=== PATIENT | female | born 1955 | race Caucasian/White ===

== ENCOUNTER → 2019-08-31 | Outpatient (CLI) | payer MEDICARE, SELFPAY ==
[2019-08-21 13:42] VITALS: BMI 29.0
--- NOTE | 2019-08-31 11:10 | RAD_ITS ---
HISTORY: fracture COMPARISON: None FINDINGS: # of images incl. paperwork: 3 XR Ankle Min 3 Views : Of fracture is present through the lateral malleolus. The fracture appears to begin barely below the level of the talar dome, and extends for 2.3 cm cranial to the tibial plafond and the distal fracture fragment is laterally subluxed by 1 cortex width The ankle mortise is intact. Soft tissue swelling is present about the ankle, but greater laterally. RAD/Ankle min 3 Views IMPRESSION: Oblique fracture through the lateral malleolus that extends for 2.3 cm above the tibial plafond of the right ankle. at [id number] Reported and signed by: Federico Chavez MD Electronically Signed: Federico Chavez MD at 6:04 EST Tel , Service support ,
== END | disposition home or self-care (01) ==
LOC: HPRAD 11:10
PROVIDERS: PCP Nurse Practitioner; Referring Provider Physician Assistant; Visit Provider Physician Assistant
DX: S82.892A Other fracture of left lower leg, initial encounter for closed fracture (principal)
CPT/HCPCS: 73610

== ENCOUNTER → 2019-09-08 | Outpatient (CLI) | payer MEDICARE, SELFPAY ==
[2019-08-21 13:42] VITALS: BMI 29.0
--- NOTE | 2019-09-08 09:33 | RAD_ITS ---
STUDY: X-RAY - LEFT ANKLE REASON FOR EXAM: Female, 64 years old. FOLLOW UP RT ANKLE FX TECHNIQUE: 3 view(s) of the ankle. COMPARISON: 08/31/2019 FINDINGS: Healing slightly laterally displaced oblique fracture of the distal right fibular proximal tibial plafond with early callus formation. Normal medial and lateral malleoli. Normal tibiotalar articulation and ankle mortise. Normal visualized talus and calcaneus. The visualized subtalar, talonavicular, calcaneocuboid and tarsal articulations are normal. The soft tissue structures are unremarkable. RAD/Ankle min 3 Views IMPRESSION: Healing slightly laterally displaced oblique fracture of the distal right fibula proximal to the tibial plafond with early callus formation. Electronically Signed: Benjamin Meneses MD at 14:33 EST Tel , Service support ,
== END | disposition home or self-care (01) ==
LOC: HPRAD 09:33
PROVIDERS: PCP Nurse Practitioner; Referring Provider Physician Assistant; Visit Provider Physician Assistant
DX: S82.892A Other fracture of left lower leg, initial encounter for closed fracture (principal)
CPT/HCPCS: 73610

== ENCOUNTER → 2019-09-26 | Outpatient (CLI) | payer MEDICARE, SELFPAY ==
[2019-09-26 09:37] VITALS: BMI 29.0
--- NOTE | 2019-09-26 09:44 | RAD_ITS ---
STUDY: X-RAY - RIGHT ANKLE REASON FOR EXAM: Fracture follow-up. TECHNIQUE: 3 view(s) of the ankle. COMPARISON: Radiographs 09/08/2019 and 08/31/2019. FINDINGS: There is no significant change of the healing minimally displaced fracture of the distal fibula. Normal medial and lateral malleoli. Normal tibiotalar articulation and ankle mortise. There is a plantar calcaneal enthesophyte. Otherwise, unremarkable visualized talus and calcaneus. The visualized subtalar, talonavicular, calcaneocuboid and tarsal articulations are normal. There is mild lateral soft tissue swelling. RAD/Ankle min 3 Views IMPRESSION: No significant change of healing distal fibular fracture. Electronically Signed: Caleb Edwards MD at 11:11 EDT Tel , Service support ,
== END | disposition home or self-care (01) ==
LOC: HPRAD 09:44
PROVIDERS: PCP Nurse Practitioner; Referring Provider Orthopaedic Surgery; Visit Provider Orthopaedic Surgery
DX: S82.831A Other fracture of upper and lower end of right fibula, initial encounter for closed fracture (principal); S82.891A Other fracture of right lower leg, initial encounter for closed fracture
CPT/HCPCS: 73610

== ENCOUNTER 2021-04-22 11:00 | Outpatient (RCR) | payer MEDICARE, SELFPAY ==
--- NOTE | 2021-04-02 16:58 | HP.OTEVAL ---
Patient's Visit Information JHON PURDY is a 65 year old F, referred to Occupational Therapy by Yesenia Krueger, MAGY-C, with a diagnosis of lymphedema. Date of Evaluation: 04/02/21 Occupational Therapist: Candi Bruno, TIFFANIER/Regan, CHT - Subjective This 65 year old female was seen for OT eval with dx of lymphedema bilateral LE. pt has worked standing on concret for years and last four years or so she has used compression socks thigh high 20-30 mmHg. pt states she continues to struggle with swelling and pain in her legs by the end of the day. pt states she sleeps in a regular bed and is getting a wedge for her LE to sleep with them elevated. Pt would like to know what else she can do to mtg her swelling. - Pain bilateral LE 4 Pain Intensity Range: 5 - Lymphedema (Circumferential Measure) Mid-foot: right 22cm left 21cm Ankle: right 24cm left 26cm Lower calf: right 34cm left 33cm Largest calf: right 39cm left 39cm Below knee: right 38cm left 37cm Above knee: right 46cm left 42cm Mid-thigh: right 50cm left 52 cm Lower Exremity Comments: pt demo with LE edema bilaterally. left ankle more than right. pain with palpation of left ankle - Lower Limb Functional Index Lower Extremity Functional Score: 28 - Goals Demonstrate a 20% reduction in edema by d/c: Yes Demonstrate adequate knowledge of self-bangaging by 1st week: Yes Demonstrate adequate knowledge of self-massage by 2nd week: Yes Demonstrate adequate knowledge skin care/prec by 2nd week: Yes Demonstrate adequate knowledge therapeutic exercises by d/c: Yes Select approp compression garment w/donning/care/wear by d/c: Yes Voice need to replace compression garment every 4-6mo by dc: Yes - Rehabilitation General Assessment: pt demo with edema and as conservative compression socks are not mtg. well pt would benefit from flexitouch to assist her with pts mtg of lymphedema. Pt would benefit from OT services for 2-3 visits to ensure pt is able to mtg her lymphedema and understands need of compression devices and skin care. pt agree to POC. Rehabilitation Potential: Good - Anticipated Interventions Education re Diagnosis, Manual Lymph Drainage, Education re Life-long lymphedema Management, Education re Self-Bandaging Techniques, Education re Skin Care and Precautions, Education re Self Massage Techniques, Education re Correct Donning Tech,Care&Wearing Sched Comp Garments, Home Program - Visit Plan TEXT: Thank you for the opportunity to evaluate your patient. For Medicare and Medicare HMO plans, please review the plan of care and approve it. It will need to be FAXED BACK to us at [phone] for Medicare purposes. Please let me know if there are questions or concerns regarding this plan of care. Physician Signature: Date:
--- NOTE | 2021-04-28 09:06 | OTREVAL_ITS ---
Yesenia Krueger, TECHNICAL STENOGRAPHER-C, It has been my pleasure to treat JHON PURDY over the last 3 visits for lymphedema. Please see the progress note below for an update on the occupational therapy plan of care! Subjective: pt arrives to session- states she is doing ok- continues to have ankle swelling with using her compression thigh high socks 20-30mmHg. 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 pt reports she is performing her HEP at least 2 x a day. Objective/Function: pt demo with a reduction of bilateral circumference of ankles right from 10.5 to 9.5 and left from 11 to 10 following use of vaso pneumatic devices for home mtg. pt would benefit from from home lympha press or vaso pneumatic device Plan Visits in this POC: 2-3 visits Plan: initate home unit for pt to mtg LE edema Goals - Goals Demonstrate a 20% reduction in edema by d/c: Yes Demonstrate adequate knowledge of self-bangaging by 1st week: Yes Demonstrate adequate knowledge of self-massage by 2nd week: Yes Demonstrate adequate knowledge skin care/prec by 2nd week: Yes Demonstrate adequate knowledge therapeutic exercises by d/c: Yes Select approp compression garment w/donning/care/wear by d/c: Yes Voice need to replace compression garment every 4-6mo by dc: Yes Patient Goals: Learn how to Manage Lymphedema Anticipated Interventions Anticipated Interventions: Education re Diagnosis, Manual Lymph Drainage, Education re Life-long lymphedema Management, Education re Self-Bandaging Techniques, Education re Skin Care and Precautions, Education re Self Massage Techniques, Education re Correct Donning Tech,Care&Wearing Sched Comp Garments, Home Program Please do not hesitate to contact me at [phone] by phone or if you have questions or concerns regarding this new plan of care! Sincerely, Candi Bruno, OTR/L, CHT
--- NOTE | 2021-05-27 13:51 | HP.OTREVAL ---
Yesenia Krueger, COMPLETION SUPERVISOR-C, It has been my pleasure to treat JHON PURDY over the last 3 visits for lymphedema. Please see the progress note below for an update on the occupational therapy plan of care! Subjective: pt arrives to session- states she is doing ok- continues to have ankle swelling with using her compression thigh high socks 20-30mmHg. 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 pt reports she is performing her HEP at least 2 x a day. Objective/Function: pt demo with a reduction of bilateral circumference of ankles. right from 10.5 to 9.5 and left from 11 to 10 following use of vaso pneumatic devices for home mtg. pt would benefit from from home lympha press or vaso pneumatic device to stimulate circulation. due to risk of fluid retention in pts abdomen ( truncal swelling or truncal congestion) therapist recommending flexitouch unit to better control lymph fluid circulation and lymphedema mtg. Plan Visits in this POC: 2-3 visits Plan: initate home unit for pt to mtg LE edema Goals - Goals Demonstrate a 20% reduction in edema by d/c: Yes Demonstrate adequate knowledge of self-bangaging by 1st week: Yes Demonstrate adequate knowledge of self-massage by 2nd week: Yes Demonstrate adequate knowledge skin care/prec by 2nd week: Yes Demonstrate adequate knowledge therapeutic exercises by d/c: Yes Select approp compression garment w/donning/care/wear by d/c: Yes Voice need to replace compression garment every 4-6mo by dc: Yes Patient Goals: Learn how to Manage Lymphedema Anticipated Interventions Anticipated Interventions: Education re Diagnosis, Manual Lymph Drainage, Education re Life-long lymphedema Management, Education re Self-Bandaging Techniques, Education re Skin Care and Precautions, Education re Self Massage Techniques, Education re Correct Donning Tech,Care&Wearing Sched Comp Garments, Home Program Please do not hesitate to contact me at [phone] by phone or if you have questions or concerns regarding this new plan of care! Sincerely, Candi Bruno, OTR/L, CHT
--- NOTE | 2021-07-22 09:32 | HP.OTDCSUM ---
It has been my pleasure to treat JHON PURDY under orders from REBEKAH Genao, for the diagnosis of lymphedema for a total of 3 visit(s). Please see the following information for a summary of their discharge status. % Improvement: 60 Objective/Function: pt demo with a reduction of bilateral circumference of ankles. right from 10.5 to 9.5 and left from 11 to 10 following use of vaso pneumatic devices for home mtg. pt would benefit from from home lympha press or vaso pneumatic device to stimulate circulation. due to risk of fluid retention in pts abdomen ( truncal swelling or truncal congestion) therapist recommending flexitouch unit to better control lymph fluid circulation and lymphedema mtg. Patient Goals: Learn how to Manage Lymphedema Demonstrate a 20% reduction in edema by d/c: Yes Demonstrate adequate knowledge of self-bangaging by 1st week: Yes Demonstrate adequate knowledge of self-massage by 2nd week: Yes Demonstrate adequate knowledge skin care/prec by 2nd week: Yes Demonstrate adequate knowledge therapeutic exercises by d/c: Yes Select approp compression garment w/donning/care/wear by d/c: Yes Voice need to replace compression garment every 4-6mo by dc: Yes Plan: initate home unit for pt to mtg LE edema If there are questions or concerns regarding this patient's occupational therapy, please fell free to call me at [phone]. Thank you for the referral of this patient. Sincerely, Candi Bruno, OTR/L, CHT
== END 2021-07-22 12:28 | disposition home or self-care (01) ==
LOC: OT 11:00
PROVIDERS: PCP Nurse Practitioner; Referring Provider Nurse Practitioner; Visit Provider Nurse Practitioner
DX: I89.0 Lymphedema, not elsewhere classified (principal)
CPT/HCPCS: 97166; 97530

== ENCOUNTER → 2023-03-29 | Outpatient (CLI) | payer MEDICARE, SELFPAY ==
[2023-03-29 21:18] LABS: Absolute Lymphocyte Count 1.83 X10^3/uL (0.83-4.51); Absolute Neutrophil Count 5.1 X10^3/uL (2.0-7.7); Basophil# 0.03 X10^3/uL; Basophil% 0.4 % (0-1); Eosinophil# 0.09 X10^3/uL; Eosinophils% 1.2 % (0-5); Hematocrit 41.1 % (37-47); Lymphocyte # 1.83 X10^3/ul (0.83-4.51); Mean Corp Hgb Conc 31.6 g/dL (32-36); Mean Corpuscular Hgb 29.9 pg (27.0-32.0); Mean Corpuscular Volume 94.5 fL (81-99); Monocyte# 0.55 X10^3/uL; Monocyte% 7.2 % (0-10); NRBC Flagged by Analyzer 0 % (0-5); Neutrophil # 5.11 X10^3/uL (2.7-7.7); Neutrophil % 67.1 % (47-70); Platelet Count 379 K/mm3 (150-450); RBC Distribution Width CV 13.1 % (11.6-14.6); RBC Distribution Width SD 45.4 fl (35.1-43.9); Red Blood Count 4.35 M/mm3 (4.2-5.4); White Blood Count 7.6 K/mm3 (4.4-11.0)
[2023-03-29 21:28] LABS: ALB/GLOB Ratio 1.2 RATIO (0.9-2.4); AST(SGOT) 20 U/L (15-37); Alanine Aminotransfer ALT/SGPT 28 U/L (13-56); Albumin, Serum 3.7 g/dL (3.2-5.0); Alkaline Phosphatase 65 U/L (45-117); Anion Gap 5 (5-15); BUN 14 mg/dL (7-18); BUN/Creat Ratio 18.3 RATIO (10-20); Calcium,Total 9.1 mg/dL (8.5-10.1); Chloride 107 mmol/L (98-107); Cholesterol 236 mg/dL (200); Creatinine, Serum 0.77 mg/dL (0.55-1.02); EST Glomerular Filtration Rate 79 mL/min (>60); Est Glom Filt Rate - Afr Amer 96 mL/min (>60); Globulin 3.1 g/dL (2.2-4.2); Glucose 121 mg/dL (74-106); High Density Lipoprotein 54 mg/dL; Potassium 3.8 mmol/L (3.5-5.1); Protein, Total 6.8 g/dL (6.4-8.2); Sodium Level 140 mmol/L (136-145); Triglycerides 138 mg/dL; Very Low Density Lipoprotein 28 mg/dL (5-40)
== END | disposition home or self-care (01) ==
PROVIDERS: PCP Nurse Practitioner; Visit Provider Nurse Practitioner
DX: E78.5 Hyperlipidemia, unspecified (principal); I89.0 Lymphedema, not elsewhere classified; M25.572 Pain in left ankle and joints of left foot
CPT/HCPCS: 80053; 80061; 85025

== ENCOUNTER → 2023-09-10 | Outpatient (CLI) | payer MEDICARE, SELFPAY ==
--- NOTE | 2023-09-10 10:16 | BD_ITS ---
STUDY: DUAL ENERGY X-RAY ABSORPTIOMETRY / DXA REASON FOR EXAM: Female, 68 years old. Foot problems TECHNIQUE: Bone Mineral Density (BMD) measurements of lumbar spine and bilateral hips were obtained. COMPARISON: None. FINDINGS: Lumbar Spine (L1-L4): g/cm2 (1.107) / T-score (0.3) / Z-score (2.4) Findings are suggestive of normal bone density with a low fracture risk. Left Femur Total: g/cm2 (0.794) / T-score (-1.2) / Z-score (0.2) Left Femoral Neck: g/cm2 (0.728) / T-score (-1.1) / Z-score (0.7) Right Femur Total: g/cm2 (0.787) / T-score (-1.3) / Z-score (0.2) Right Femoral Neck: g/cm2 (0.705) / T-score (-1.3) / Z-score (0.4) BD/Dexa Bone Density Study IMPRESSION: The patient is considered osteopenic as outlined below according to World [employer] Organization (WHO) criteria with a low fracture risk. Reference Information: The T-score is the number of standard deviations above or below the standard which is normal for young adults at their peak bone mineral density. The World Health Organization (WHO) interprets the T-scores as follows: Above -1 Normal bone density Between -1 and -2.5 Osteopenia Equal to / or below -2.5 Osteoporosis As a practical clinical guideline, osteopenia may be graded as follows: Mild -1 through -1.5 Moderate -1.6 through -2.0 Severe -2.1 through -2.4 The Z-score is the number of standard deviations above or below age-matched controls. A Z-score of less than -1.5 would be considered abnormal. References: 1. NIH Osteoporosis and Related Bone Diseases www osteo.org 2. International Society for Clinical Densitometry www iscd.org 3. National Osteoporosis Foundation www nof.org Electronically Signed: Socrates Maldonado MD at 14:44 EST ,
--- OUTSIDE RECORDS SUMMARY | 2023-09-10 10:36 | XMS RPT_ITS | CCD ---
Author Name Unknown Address [address] [place] [address] Organization [facility] Care Team Providers Care Parimutuel Ticket Cashier Name Role Phone CALEB PISANO Unavailable Unavailable IMCA Unavailable Unavailable CHARITO KRUEGER Unavailable Unavailable CALEB PISANO Unavailable Unavailable CHARITO KRUEGER Unavailable Unavailable CALEB PISANO Unavailable Unavailable [facility]CA Unavailable Unavailable CHARITO KRUEGER Unavailable Unavailable CALEB PISANO Unavailable Unavailable [facility]CA Unavailable Unavailable CHARITO KRUEGER Unavailable Unavailable Unavailable Primary Care Provider Unavailabl e Unavailable Primary Care Provider Unavailabl e Unavailable Primary Care Provider Unavailabl e PROVIDER, UNKNOWN Referring Unavailable Charito Krueger Primary Care Unavailable Emiliano Rose Attending Unavailable Charito Krueger Primary Care Provider Allergies Allergy Classification Reported Allergen(s) Allergy Type Date of Onset Reaction(s) Facility (1 source) Iodides Propensity to adverse reactions to drug 04-13-2022 [facility] Medications Current Medications Medication Drug Class(es) Dates Sig (Normalized) Sig (Original) Acetaminophen (1 source) Start: 04-13-2022 acetaminophen (TYLENOL) tablet 650 mg atorvastatin 10 mg oral tablet (2 sources) HMG-CoA Reductase Inhibitor Start: 04-14-2022 take 1 tablet by mouth once daily atorvastatin (LIPITOR) 10 MG tablet Take 1 tablet by mouth daily 30 tablet 0 04/14/2022 Active Completed/Discontinued Medications Medication Drug Class(es) Dates Sig (Normalized) Sig (Original) aspirin 81 mg chewable tablet (4 sources) Platelet Aggregation Inhibitor, Nonsteroidal Anti-inflammatory Drug Start: 04-14-2022 take 81 mg by mouth once daily 81 mg, Oral, DAILY, First dose on Wed04/14/22 at 0900, Until Discontinued Problems Active Problems Problem Classification Problem Date Documented Da te Episodic/Chronic Allergic reactions (2 sources) Radiographic dye allergy status; Translations: [Radiographic dye allergy status] Onset: 04-13-2022 Episodic Fracture of lower limb (1 source) Closed fracture of distal fibula Episodic Other aftercare (2 sources) termite control representative (current) use of aspirin; Translations: [termite control representative (current) use of aspirin] Onset: 04-13-2022 Episodic Other non-traumatic joint disorders (3 sources) Arthralgia of the ankle and/or foot; Translations: [Pain in left ankle and joints of left foot] 03-30-2023 Episodic Other non-traumatic joint disorders (3 sources) Effusion of joint of left ankle; Translations: [Effusion, left ankle] 03-30-2023 Episodic Residual codes; unclassified (2 sources) Family history of ischemic heart disease and other diseases of the circulatory system; Translations: [Family hx of ischem heart dis and oth dis of the [facility]] Onset: 04-13-2022 Episodic Unclassified (1 source) Unknown / UNK(Unknown) Onset: 04-14-2018 Past or Other Problems Problem Classification Problem Date Documented Date Episodic/Chronic Abdominal hernia (7 sources) Hiatal hernia; Translations: [Diaphragmatic hernia without obstruction or gangrene] Onset: 04-13-2022 Episodic Nonspecific chest pain (7 sources) Chest pain; Translations: [Chest pain, unspecified] Onset: 04-13-2022 Episodic Unclassified (1 source) Varicose veins of bilateral lower extremities with other complications Onset: 04-14-2018 Results Test Name Value Interpretation Reference Range Facil ity Vital Signs Date Time Vital Sign Value Performing Clinician Faci lity 04-14-2022 11:06-0400 Diastolic blood pressure 72 mm[Hg] Yrn Johnston MD Work Phone: [facility] 04-14-2022 11:06-0400 Heart rate 89 /min Ynr Johnston MD Work Phone: [facility] 04-14-2022 11:06-0400 SaO2% (BldA) [Mass fraction] 96 % Yrn Johnston MD Work Phone: [facility] 04-14-2022 11:06-0400 Systolic blood pressure 120 mm[Hg] Yrn Johnston MD Work Phone: [facility] 04-14-2022 07:35-0400 Body temperature 98.2 [degF] Yrn Johnston MD Work Phone: [facility] 04-14-2022 07:35-0400 Respiratory rate 16 /min Yrn Johnston MD Work Phone: [facility] 04-13-2022 18:23-0400 Body height 167.6 cm Yrn Johnston MD Work Phone: [facility] 04-13-2022 18:23-0400 Body mass index (BMI) [Ratio] 25.82 kg/m2 Yrn Johnston MD Work Phone: [facility] 04-13-2022 18:23-0400 Body weight 72.58 kg Yrn Johnston MD Work Phone: [facility] 08-18-2019 10:49-0500 Body Temperature 98.2 [degF] [facility] Work Phone: 08-18-2019 10:49-0500 BP Diastolic 60 mm[Hg] [facility] Work Phone: 08-18-2019 10:49-0500 BP Systolic 115 mm[Hg] [facility] Work Phone: 08-18-2019 10:49-0500 Pulse (Heart Rate) 88 /min [facility] Work Phone: 08-18-2019 10:49-0500 Pulse Oximetry 93 % [facility] Work Phone: 08-18-2019 10:49-0500 Respiratory Rate 16 /min [facility] Work Phone: Encounters Encounter Date Encounter Type Care Provider Facility Start: 03-30-2023 End: 03-30-2023 Subsequent hospital visit by physician Charito Krueger Work Phone: [facility] Radiology Procedures Date Procedure Procedure Detail Performing Clinician Start: 04-14-2022 Myocardial spect mul tiple studies Zuly Pisano APRN - ENGINEERING SECRETARY Work Phone: Start: 04-14-2022 Ecg routine ecg w/le ast 12 lds w/i&r Zuly Pisano APRN - ENGINEERING SECRETARY Work Phone: Start: 04-14-2022 Hemoglobin glycosylated a1c Zuly Pisano APRN - ENGINEERING SECRETARY Work Phone: Start: 04-14-2022 Lipid panel Zuly martinez [employer] Work Phone: Start: 04-14-2022 Assay of troponin quantitative Miguel Angel Lord PA-C Work Phone: Start: 04-13-2022 Assay of troponin quantitative Emiliano Rose MD Work Phone: Start: 04-13-2022 Radiologic exam ches t single view Adalberto Esc[employer]ner [employer] Work Phone: Start: 04-13-2022 Comprehensive metabo lic panel Adalberto Sobia [employer] Work Phone: Start: 04-13-2022 Ecg routine ecg w/le ast 12 lds w/i&r Adalberto Escobarner [employer] Work Phone: Start: 08-18-2019 Radex ankle complete minimum 3 views Adalberto Ramsay Work Phone: Start: 08-18-2019 Radex foot complete minimum 3 views Adalberto Sobia Work Phone: Start: 08-18-2019 Radiologic examinati on knee 3 views Adalberto Sobia Work Phone: Start: 08-18-2019 SPLINT APPLICATION Abdoulaye Escobarner Work Phone: Plan of Treatment Date Care Activity Detail Author Start: 04-02-2028 DTaP/Tdap/Td Vaccine s (3 - Td or Tdap) DTaP/Tdap/Td Vaccines (3 - Td or Tdap) [facility] Start: 04-14-2023 Diabetes mellitus screening Diabetes Screening [facility] Start: 03-12-2023 Influenza vaccination Influenza Vacc ine (#1) [facility] Start: 02-09-2022 Influenza vaccination Flu vaccine (# 1) [facility] Start: 03-12-2021 Influenza vaccination Flu vaccine (# 1) [facility] Work Phone: Start: 2019 Pneumococcal Vaccine : 65+ Years (1 - PCV) Pneumococcal Vaccine: 65+ Years (1 - PCV) [facility] Start: 2019 Pneumococcal Vaccine : 65+ Years (1 of 1 - PCV) Pneumococcal Vaccine: 65+ Years (1 of 1 - PCV) [facility] Start: 03-12-2019 Influenza vaccination Flu vaccine (# 1) [facility] Work Phone: Start: 2014 RSV Immunization age d 60 or older (1 - 1-dose 60+ series) RSV Immunization aged 60 or older (1 - 1-dose 60+ series) [facility] Start: 2004 Zoster Vaccines (1 of 2) Zoster Vacc azeb (1 of 2) [facility] Start: 1994 Screening for malign ant neoplasm of breast Mammogram [facility] Start: 1973 DTaP/Tdap/Td vaccine (1 - Tdap) DTaP/Tdap/Td vaccine (1 - Tdap) [facility] Start: 1972 Hepatitis C screening Hepatitis C Sc reening [facility] Start: 1966 COVID-19 Vaccine (1) COVID-19 Vaccin e (1) [facility] Work Phone: Start: 1966 Depression Screening Depression Scre ening [facility] Start: 1954 COVID-19 Vaccine (#1) COVID-19 Vacci ne (#1) [facility] Start: 1954 Medicare Advantage A nnual Wellness Visit (AWV) Medicare Advantage Annual Wellness Visit (AWV) [facility] Start: 1954 Screening for malign ant neoplasm of colon [facility] Start: 1954 Screening for osteoporosis Bone Density Scan [facility] EKG 12 lead EKG 12 lead ECG Routine As Needed until discontinued starting 04/13/2022 [facility] Work Phone: Payers Date Payer Category Payer Medicare ANTHEM MEDICARE ADVANTAGE ANTHEM MEDIBLUE [id number] 2021-Present [address] [place] [address] Medicare HMO [id number] 1954 Unknown [id number] 1954 Unknown [id number] 1954 Unknown [id number] 1954 Unknown [id number] 1954 Unknown [id number] Unknown [id number] Unknown Social History Date Type Detail Facility Start: 08-18-2019 End: 04-13-2022 Tobacco smoking status [facility] Never smoker [employer] Work Phone: Start: 08-18-2019 End: 04-13-2022 Alcohol intake Ex-drinker (finding) [employer] Work Phone: Start: 1955 Sex Assigned At Not on file [facility] Work Phone: Start: 08-18-2019 End: 04-13-2022 Tobacco use and exposure Never used [facility] Start: 04-03-2022 End: 03-30-2023 Exposure to SARS-CoV-2 (event) Not sure [facility] Start: 04-13-2022 History of Social function [facility] Start: 04-13-2022 Tobacco use panel [facility] History of Present illness Narrative 04-14-2022 Domi Deleon RN - 04/14/2022 11:03 AM EDT Note Date & Type Note Facility 04-14-2022 History of Presen t illness Narrative Test explained, pt verbalized understanding. At peak exercise patient c/o dyspnea and fatigue which resolved in early recovery. Denied chest pain before during or after exercise. No c/o in recovery. To rad for scans. documented in this encounter [employer] Phone: Discharge summary note 04-14-2022 Note Date & Type Note Facility 04-14-2022 Note Clinical Decision Un it Discharge Note Date & time patient placed in observation status:04/13/2022 1230 Date & time of discharge:04/14/2022 1500 Reason patient placed into observation status:Chest pain Hospital Course: In brief, patient presented to the ED with chief complaint of patient presented to the emergency department with complaints of chest pain underneath her left breast that started yesterday at 10 PM. She also endorses increased fatigue the last couple of weeks. She states the pain does not go anywhere its isolated to under the left breast region. She denies any nausea vomiting or diarrhea. Denies any diaphoresis. Patient states that she went to bed with this pressure and woke up with it this morning. This caused her to come to the emergency department. An ACS evaluation was completed including EKG and initial troponin levels which were negative. The patient was in agreement to come to the CDU unit for further evaluation including cardiac stress test. Patient's chest x-ray reveals a mild to moderate hiatal hernia. Patient states that she did not know she had a hiatal hernia. Patient has never had a echocardiogram or cardiac stress test completed. She states that her mother had angioplasty at the age of 57, With a history of atrial fib. Patient received baby aspirin in the emergency department. On my evaluation 04/14 patient states she feels better and has not had any pressure. Cholesterol labs were drawn which showed mild elevation, total cholesterol 223, LDL 159 - only mildly elevated and patient did not fast for 12 hours prior to lab being drawn. Recommend follow up with PCP for reassessment and repeat lab draw with appropriate fasting. A1C is mildly elevated 5.8. ASCVD Risk Calculator: 7.5% Stress test showed poor functional capacity, stress EKG is normal. Normal exercise stress myocardial perfusion imaging, no evidence for scar or sichemia. LVEF is normal. Stress test is non-diagnostic due to poor workload achieved. Patient states that she feels much better and would like to go home, has not experienced any chest pressure or pain today even with stress test. I feel that patient is stable to follow up with cardiology and her PCP for risk factor modification and further testing. Patient agrees with this plan, will be discharged. The patient was informed that although observation evaluation is largely reassuring, they still need close outpatient follow up with their Primary Care Physician and specialist [place] [facility] for continued evaluation. The patient was also told that should new, worsening, or changing symptoms develop, they need to return to the ED for evaluation. The patient verbalizes understanding of our discussion and agrees with the discussed plan. Discharge Diagnosis: 1.) Chest pain Focused Physical Exam: Physical Exam Constitutional: Appearance: Normal appearance. HENT: Head: Normocephalic and atraumatic. Mouth/Throat: Mouth: Mucous membranes are moist. Eyes: Extraocular Movements: Extraocular movements intact. Pupils: Pupils are equal, round, and reactive to light. Cardiovascular: Rate and Rhythm: Normal rate and regular rhythm. Pulmonary: Effort: Pulmonary effort is normal. No respiratory distress. Breath sounds: No stridor. No wheezing, rhonchi or rales. Abdominal: General: There is no distension. Palpations: Abdomen is soft. There is no mass. Tenderness: There is no abdominal tenderness. There is no guarding. Hernia: No hernia is present. Musculoskeletal: General: Normal range of motion. Skin: General: Skin is warm and dry. Capillary Refill: Capillary refill takes less than 2 seconds. Neurological: General: No focal deficit present. Mental Status: She is alert and oriented to person, place, and time. Sensory: No sensory deficit. Motor: No weakness. VITAL SIGNS: BP 120/72 Pulse 89 Temp 98.2 ?F (36.8 ?C) (Temporal) Resp 16 Ht 5' 6 (1.676 m) Wt 160 lb (72.6 kg) SpO2 96% BMI 25.82 kg/m? Labs: Results for orders placed or performed during the hospital encounter of 04/13/22 Comprehensive Metabolic Panel Result Value Ref Range Sodium 138 135 - 145 mmol/L Potassium 4.4 3.5 - 5.1 mmol/L Chloride 106 98 - 107 mmol/L CO2 26 22 - 30 mmol/L Anion Gap 6 3 - 13 mmol/L Glucose 94 70 - 100 mg/dL BUN 14 9 - 20 mg/dL Creatinine 0.66 0.52 - 1.25 mg/dL eGFR >90.0 >60 mL/min EGFR IF NonAfrican Slovenian >90.0 >60 mL/min Calcium 9.4 8.4 - 10.4 mg/dL Albumin,Serum 4.5 3.5 - 5.0 g/dL Total Protein 7.9 6.3 - 8.2 g/dL Total Bilirubin 0.6 0.2 - 1.3 mg/dL Alkaline Phosphatase 65 38 - 126 U/L ALT 26 0 - 34 U/L AST 47 (H) 15 - 46 U/L CBC with Auto Differential Result Value Ref Range WBC 8.8 3.6 - 10.7 10*3/uL RBC 4.41 3.80 - 5.20 10*6/uL Hemoglobin 13.3 11.7 - 16.0 g/dL Hematocrit 39.6 35.0 - 47.0 % MCV 89.8 79.0 - 98.0 fL MCH 30.2 26.0 - 34.0 pg MCHC 33.7 32.0 - 36.0 (more content not included)... [facility] Progress note 03-25-2021 Note Date & Type Note Facility 03-25-2021 Note HNO ID: [id number] Author: RT Reuben(R) Service: Radiology Author Type: Technologist Type: Progress Notes Filed: 03/25/2021 3:12 PM Note Text: Radiology Service Progress Note PATIENT NAME: Shira Ambrose DATE OF SERVICE: March 25, 2021 TIME: 3:12 PM PATIENT IDENTITY VERIFICATION COMPLETED USING TWO (2) IDENTIFIERS: Name and Date of confirmed by patient verbally. FALL SCREENING: Has the patient had 2 falls in the last year or 1 fall with injury or currently using an Ambulatory Assistive Device (Walker, Cane, Wheelchair, Crutches, etc.)? No PATIENT GENDER DATA: Female. status: : No status: NO. PATIENT RELEVANT IMPLANT DATA REVIEWED: Yes RADIOLOGY DEPARTMENT: Mammography PERIPHERAL IV DATA: Not applicable SIGNED BY: RT Reuben(R) March 25, 2021 3:12 PM [facility] Progress note 02-24-2021 Note Date & Type Note Facility 02-24-2021 Note HNO ID: [id number] Author: Carolyne Murlilo MD Service: ? Author Type: Physician Type: Progress Notes Filed: 02/24/2021 11:55 AM Note Text: Subjective: Shira Ambrose is a 65 year old female who presents for foot pain. She is using compression hose. Her varicose veins are worse. Saw Caleb Pisano last year and only compression recommended. She really doesn't like to go to doctors or get tests. She has thigh high compression hose. PAST MEDICAL HISTORY Diagnosis Date - Varicose veins of both lower extremities with complications No past surgical history on file. Current Outpatient Medications Medication Sig Dispense Refill - aspirin, enteric coated (ASPIRIN, ENTERIC COATED) 81 mg EC tablet 81 mg. - Vitamin E, dl, acetate, (VITAMIN E) 400 unit capsule Take 400 Units by mouth once daily. - mecobalamin (B12 ACTIVE ORAL) Take by mouth. - ascorbic acid (RYAN-C ORAL) Take by mouth. - BIOTIN, BULK, MISC - ZINC ACETATE ORAL Take by mouth. - MAGNESIUM ASPARTATE HCL ORAL Take by mouth. No current facility-administered medications for this visit. ALLERGIES No Known Allergies No family history on file. Social History Tobacco Use - Smoking status: Not on file Substance Use Topics - Alcohol use: Not on file - Drug use: Not on file Objective: BP 112/64 Pulse 71 Temp 96.9 Ht 5' 6 (1.68m) Wt 158 lb (71.7kg) SpO2 98% BMI 25.51 kg/(m2). no goiter/bruit/node Heart-Reg without murmur Lungs-clear She has significant varicosities, good pedal pulses. She has early bunions with redness. She has callouses under her great toes. She has pedal edema in posterior tibial area. Current Outpatient Medications Medication Sig - aspirin, enteric coated (ASPIRIN, ENTERIC COATED) 81 mg EC tablet 81 mg. - Vitamin E, dl, acetate, (VITAMIN E) 400 unit capsule Take 400 Units by mouth once daily. - mecobalamin (B12 ACTIVE ORAL) Take by mouth. - ascorbic acid (RYAN-C ORAL) Take by mouth. - BIOTIN, BULK, MISC - ZINC ACETATE ORAL Take by mouth. - MAGNESIUM ASPARTATE HCL ORAL Take by mouth. No current facility-administered medications for this visit. Assessment: Screening breast examination (primary encounter diagnosis) Venous insufficiency Leg edema Plan: Patient Instructions Continue vitamin supplements as per usual. Continue support stockings and get good fitting footwear to avoid callouses and ulceration of your toes and bunions. Get mammogram for screening. If you ever desire labwork for cholesterol etc., let me know. Carolyne Murillo MD Electronically Signed 02/24/2021 11:34 AM [facility] Evaluation note Note Date & Type Note Facility documented in this encounter [facility] Work Phone: Evaluation note Note Date & Type Note Facility documented in this encounter [facility] Evaluation note Note Date & Type Note Facility documented in this encounter [facility] Summary Purpose Family History No Family History Records FoundNo Family History Records FoundNo Family History Records FoundNo Family History Records Found Advance Directives Latest Code Status on File Code Status Date Activated Date Inactivated Comments Full Code 04/13/2022 1:52 PM Discharge Instructions * Instructions* Adalberto Ramsay, LIZ - ENGINEERING SECRETARY - 08/18/2019 Motrin, Tylenol, Ice and elevate * Attachments The following attachments cannot be sent through Care Everywhere. * Ankle Fracture (Mongolian) documented in this encounter Assessments Diagnosis Closed torus fracture of distal end of right fibula, initial encounter- Primary Reason for Referral Specialty Diagnoses / Procedures Referred By Jacy santizo Referred To Contact Cardiology Diagnoses Chest pain, unspecified type Yady Reis PA [address] [place] [address] [facility] [address] [address] Referral ID Status Reason Start Date Expiration Date V isits Requested Visits Authorized [id number] Open Specialty Services Required 04/14/2022 04/14/2023 1 1 Scheduling Instructions [facility] [place] [address] [address] Comments The patient can be scheduled with any member of the group, including the provider with the first available appointments. Additional Source Comments INFORMATION SOURCE (unrecogn ized section and content) DATE CREATED AUTHOR AUTHOR'S ORGANIZ ATION 03/28/2021 [facility] DATE CREATED AUTHOR AUTHOR'S ORGANIZ ATION 08/17/2021 [facility] DATE CREATED AUTHOR AUTHOR'S ORGANIZ ATION 04/20/2022 [facility] Reason for Visit (unrecogniz ed section and content) Reason Comments Chest Pain Ordered Prescriptions (unrec ognized section and content) Scheduled Active and Recently Administ ered Medications (unrecognized section and content) PRN Medication Order 04/12/2022 04/13/2022 04/14/2022 0.9 % sodium chloride infusion 25 mL, IntraVENous, at 100 mL/hr, PRN, If patient receiving piggyback infusions without ordered maintenance IV fluids or with frequent/long duration piggyback infusions, Starting on Wed04/13/22 at 1352, Administer at the same rate as the piggyback being infused. acetaminophen (TYLENOL) suppository 650 mg(Linked Group 1) 650 mg, Rectal, EVERY 6 HOURS PRN, Starting on Wed04/13/22 at 1352, Until Discontinued, Pain Mild (1-3), Fever, For temp greater than 100.4 F (38 C), Administer if oral route cannot be used. acetaminophen (TYLENOL) tablet 650 mg(Linked Group 1) 650 mg, Oral, EVERY 6 HOURS PRN, Starting on Wed04/13/22 at 1352, Until Discontinued, Pain Mild (1-3), Fever, For temp greater than 100.4 F (38 C), Maximum dose of acetaminophen is 4000 mg from all sources in 24 hours. nitroGLYCERIN (NITROSTAT) SL tablet 0.4 mg 0.4 mg, SubLINGual, EVERY 5 MIN PRN, 3 doses, Starting on Wed04/13/22 at 1352, Until Discontinued, Chest pain, Place 1 tablet under tongue upon chest pain, wait 5 minutes and may repeat up to 3 doses in 15 minutes. Do not crush or break. nitroGLYCERIN (NITROSTAT) SL tablet 0.4 mg 0.4 mg, SubLINGual, EVERY 5 MIN PRN, 3 doses, Starting on Wed04/13/22 at 1052, Until Discontinued, Chest pain, Place 1 tablet under tongue upon chest pain, wait 5 minutes and may repeat up to 3 doses in 15 minutes. Do not crush or break. Hold is SBP <90 or if symptoms gone. Let physician know results. ondansetron (ZOFRAN) injection 4 mg(Linked Group 2) 4 mg, IntraVENous, EVERY 6 HOURS PRN, Starting on Wed04/13/22 at 1352, Until Discontinued, Nausea, Vomiting, Administer if oral route cannot be used. ondansetron (ZOFRAN-ODT) disintegrating tablet 4 mg(Linked Group 2) 4 mg, Oral, EVERY 8 HOURS PRN, Starting on Wed04/13/22 at 1352, Until Discontinued, Nausea, Vomiting polyethylene glycol (GLYCOLAX) packet 17 g 17 g, Oral, DAILY PRN, Starting on Wed04/13/22 at 1352, Until Discontinued, Constipation, First line therapy for constipation sodium chloride flush 0.9 % injection 5-40 mL 5-40 mL, IntraVENous, PRN, Starting on Wed04/13/22 at 1352, Until Discontinued, Line Care, After every IV line use, For Line Patency: Peripheral IV = 5 mL; Midline or Central Line = 10 mL/lumen. If following IV push medication, administer flush at same rate as the IV push. Flush volume is determined by type of infusion therapy being given. For non-viscous solutions use: Peripheral IV = 5 mL Midline or Central Line = 10 mL/lumen For viscous solutions (i.e. blood components, parenteral nutrition, contrast media, or after obtaining blood sample) use: Peripheral IV = 10 mL Midline or Central Line = 20 mL/lumen Linked Groups Order Group 1: acetaminophen (TYLENOL) tablet 650 mgJump to med 650 mg, Oral, EVERY 6 HOURS PRN, Starting on Wed04/13/22 at 1352, Until Discontinued, Pain Mild (1-3), Fever, For temp greater than 100.4 F (38 C)
Maximum dose of acetaminophen is 4000 mg from all sources in 24 hours.
Or acetaminophen (TYLENOL) suppository 650 mgJump to med 650 mg, Rectal, EVERY 6 HOURS PRN, Starting on Wed04/13/22 at 1352, Until Discontinued, Pain Mild (1-3), Fever, For temp greater than 100.4 F (38 C)
Administer if oral route cannot be used.
Group 2: ondansetron (ZOFRAN-ODT) disintegrating tablet 4 mgJump to med 4 mg, Oral, EVERY 8 HOURS PRN, Starting on Wed04/13/22 at 1352, Until Discontinued, Nausea, Vomiting Or ondansetron (ZOFRAN) injection 4 mgJump to med 4 mg, IntraVENous, EVERY 6 HOURS PRN, Starting on Wed04/13/22 at 1352, Until Discontinued, Nausea, Vomiting
Administer if oral route cannot be used.
Care Teams (unrecognized sec tion and content) Parimutuel Ticket Cashier Relationship Specialty Start Date End Date Charito Krueger [id number] [place] [id number] PCP - General 04/16/22 FOR RECORDS PERTAINING TO PATIENTS WHO ARE OR HAVE BEEN ENROLLED IN A CHEMICAL DEPENDENCY/SUBSTANCEABUSE PROGRAM, SOME INFORMATION MAY BE OMITTED. This clinical summary was aggregated from multiple sources. Caution should be exercised in using it in the provision of clinical care. This summary normalizes information from multiple sources, and as a consequence, information in this document may materially change the coding, format and clinical context of patient data. In addition, data may be omitted in some cases. CLINICAL DECISIONS SHOULD BE BASED ON THE PRIMARY CLINICAL RECORDS. [facility] [email or web address] [facility]. provides no warranty or guarantee of the accuracy or completeness of information in this document.
== END | disposition home or self-care (01) ==
LOC: OPBD 10:14
PROVIDERS: PCP Nurse Practitioner; Referring Provider Nurse Practitioner; Visit Provider Nurse Practitioner
DX: M81.0 Age-related osteoporosis without current pathological fracture (principal)
CPT/HCPCS: 77080